=== PATIENT | male | born 1935 | race Caucasian/White ===

== ENCOUNTER 2017-07-30 13:48 | Emergency (ER) | payer OTHER, BC ==
[~2017-07-30] VITALS: Ht 165.1 cm; Wt 66.7 kg
[2017-07-30 15:16] LABS: BASOPHIL (%) 0.2 % (0-1); EOSINOPHIL (%) 0 % (0-5); HEMATOCRIT 42.3 % (38.0-50.0); HEMOGLOBIN 14.8 G/DL (12.5-16.6); IMMATURE GRANULOCYTE (%) 0.5 % (0.0-0.7); LYMPHOCYTE (%) 8.5 % (15-42); LYMPHOCYTE COUNT 1.2 K/uL (1.0-2.8); MCV 91.4 FL (86-99); MONOCYTE (%) 6.9 % (3-12); NEUTROPHIL (%) 83.9 % (45-76); NEUTROPHIL COUNT 12.2 K/uL (1.8-6.4); PLATELET COUNT 304 K/uL (156-360); RBC DIS.WIDTH-CV 12.2 % (11.8-14.6); RED BLOOD COUNT 4.63 M/uL (4.00-5.50); WHITE BLOOD COUNT 14.6 K/uL (4.1-10.2)
[2017-07-30 15:22] LABS: CHLORIDE 94 mEq/L (99-109); POTASSIUM 4.2 mEq/L (3.7-5.4); SODIUM 134 mEq/L (136-147)
[2017-07-30 15:24] LABS: GLUCOSE 162 mg/dL (70-99)
[2017-07-30 15:28] LABS: CREATININE 1.2 mg/dL (0.6-1.3); GFR ESTIMATE (CALCULATED) > 59 mL/min/ (58.99-99999)
[2017-07-30 15:29] LABS: UREA NITROGEN (BUN) 26 mg/dL (9-23)
[2017-07-30 15:30] LABS: TROP-I INTERPRETATION NEGATIVE; TROPONIN-I 0.03 ng/mL (0.0-0.30)
[2017-07-30 15:31] LABS: CREATINE KINASE 79 IU/L (1-294); TOTAL CK 79 IU/L (1-294)
[2017-07-30 15:37] LABS: CK-MB 1.6 ng/mL (0.0-4.9)
[2017-07-30 17:44] LABS: APPEARANCE CLOUDY ((CLEAR)); BILIRUBIN NEGATIVE; BLOOD SMALL; COLOR YELLOW ((YELLOW)); GLUCOSE (STRIP) NEGATIVE; KETONES 20; LEUKOCYTES LARGE; NITRITE POSITIVE; PROTEIN (STRIP) NEGATIVE; SPECIFIC GRAVITY 1.016 (1.000-1.030); UROBILINOGEN 0.2 MG/DL (0.2-1.0)
[2017-07-30 17:55] LABS: BACTERIA RARE /HPF; EPITHELIAL CELLS RARE /HPF; MUCUS TRACE /LPF; RED BLOOD CELLS 0-5 /HPF (0-5); WHITE BLOOD CELLS TNTC /HPF (0-5)
[2017-07-30 19:02] LABS: C DIFF TOXIN NEGATIVE (NEGATIVE)
[2017-07-30] MEDS ORDERED: CIPRO500 MG PO (20:24)
[2017-07-30 21:00] VITALS: BP 146/64
== END 2017-07-30 21:00 | disposition home or self-care (01) ==
LOC: EME 13:48
PROVIDERS: Emergency Medicine
DX: N39.0 Urinary tract infection, site not specified (principal); L89.90 Pressure ulcer of unspecified site, unspecified stage; Z91.81 History of falling; R00.0 Tachycardia, unspecified; Z85.828 Personal history of other malignant neoplasm of skin
CPT/HCPCS: 70450; 71045; 80048; 81003; 82550; 82553; 84484; 85025; 87493; 93005; 99281; 99285; A6214; J0696; J7030

== ENCOUNTER 2017-08-11 16:01 | Inpatient (IN) | payer OTHER, BC ==
[~2017-08-11] VITALS: Ht 175.3 cm; Wt 75.4 kg
[~2017-08-11 16:01] MED LIST: CIPRO500 MG PO
[2017-08-11 16:41] LABS: BASOPHIL (%) 0.2 % (0-1); EOSINOPHIL (%) 0 % (0-5); HEMATOCRIT 48.5 % (38.0-50.0); HEMOGLOBIN 16.1 G/DL (12.5-16.6); LYMPHOCYTE (%) 10.9 % (15-42); LYMPHOCYTE COUNT 1.9 K/uL (1.0-2.8); MCH 31.9 PG (29.0-34.0); MCHC 33.2 G/DL (30.0-36.0); MONOCYTE (%) 4.2 % (3-12); MONOCYTE COUNT 0.7 K/uL (0-0.8); NEUTROPHIL (%) 83.7 % (45-76); NEUTROPHIL COUNT 14.6 K/uL (1.8-6.4); PLATELET COUNT 471 K/uL (156-360); RBC DIS.WIDTH-CV 13.4 % (11.8-14.6); RBC DIS.WIDTH-SD 47.8 % (39-53); RED BLOOD COUNT 5.05 M/uL (4.00-5.50); WHITE BLOOD COUNT 17.5 K/uL (4.1-10.2)
[2017-08-11 16:52] LABS: CHLORIDE 86 mEq/L (99-109); SODIUM 137 mEq/L (136-147)
[2017-08-11 16:53] LABS: INTER. NORMALIZED RATIO 1.2
[2017-08-11 16:54] LABS: GLUCOSE 248 mg/dL (70-99)
[2017-08-11 16:57] LABS: CREATININE 9.7 mg/dL (0.6-1.3); GFR ESTIMATE (CALCULATED) 6 mL/min/ (58.99-99999)
[2017-08-11 17:06] LABS: TROP-I INTERPRETATION NEGATIVE; TROPONIN-I 0.04 ng/mL (0.0-0.30)
[2017-08-11 17:08] LABS: POTASSIUM 6.4 mEq/L (3.7-5.4)
[2017-08-11 17:12] LABS: UREA NITROGEN (BUN) 126 mg/dL (9-23)
[2017-08-11] MEDS ORDERED: GLUCOPHAGE1000 MG PO (17:31)
[2017-08-11] MEDS ORDERED: LO-DOSE ASPIRIN81 M1 PO (17:31)
[2017-08-11] MEDS ORDERED: ALEVE220 MG PO (17:32)
[2017-08-11] MEDS ORDERED: AMARYL2 MG PO (17:32)
[2017-08-11 17:34] LABS: ALBUMIN 3.3 g/dL (3.2-4.8)
[2017-08-11 17:37] LABS: TOTAL PROTEIN 7.3 g/dL (6.4-8.3)
[2017-08-11 17:39] LABS: TOTAL BILIRUBIN 0.7 mg/dL (0.0-1.0)
[2017-08-11 17:40] LABS: ALKALINE PHOSPHATASE 269 IU/L (3-129)
[2017-08-11 17:42] LABS: AST (GOT) 39 IU/L (2-34); DIRECT BILIRUBIN 0.6 mg/dL (0.0-0.3)
[2017-08-11 17:43] LABS: ALT (GPT) 42 IU/L (3-49)
[2017-08-11 21:35] LABS: CARBON DIOXIDE (BICARBONATE) 6.5 MEQ/L (20-31)
[2017-08-11 21:44] LABS: ALBUMIN 2.7 g/dL (3.2-4.8); CHLORIDE 93 mEq/L (99-109); POTASSIUM 5.7 mEq/L (3.7-5.4)
[2017-08-11 21:45] LABS: SODIUM 140 mEq/L (136-147)
[2017-08-11 21:47] LABS: GLUCOSE 266 mg/dL (70-99)
[2017-08-11 21:50] LABS: ALKALINE PHOSPHATASE 228 IU/L (3-129); CREATININE 9.4 mg/dL (0.6-1.3); GFR ESTIMATE (CALCULATED) 6 mL/min/ (58.99-99999)
[2017-08-11 21:52] LABS: AST (GOT) 34 IU/L (2-34)
[2017-08-11 21:53] LABS: ALT (GPT) 35 IU/L (3-49)
[2017-08-11 21:54] LABS: TOTAL BILIRUBIN 0.9 mg/dL (0.0-1.0); TOTAL PROTEIN 5.7 g/dL (6.4-8.3); UREA NITROGEN (BUN) 127 mg/dL (9-23)
[2017-08-11 22:28] LABS: CARBOXY HGB 1.5 % (0-5); PCO2 < 19 mm Hg (35-45); PO2 111 mm Hg (80-100)
[2017-08-11 22:29] LABS: COMMENTS - BLOOD GASES C+; FI02 21 %; SITE LR; TOTAL RESP RATE 17 resp/min
[2017-08-11 23:45] VITALS: BP 103/79
[2017-08-12] VITALS (18 sets, daily range): BP systolic 95–137; BP diastolic 43–865
[2017-08-12 04:54] LABS: PCO2 35 mm Hg (35-45); PO2 65 mm Hg (80-100)
[2017-08-12 04:55] LABS: BASE EXCESS 11.2 mEq/L (-3 to +3); BICARBONATE 33.6 mEq/L (22-26); CARBOXY HGB 1.4 % (0-5); COMMENTS - BLOOD GASES C+A+; DEVICE NC; METHEMOGLOBIN 1.1 % (0-1.5); O2 FLOW 2 L/MIN; SITE LR
[2017-08-12 04:57] LABS: pH 7.59 (7.35-7.45)
[2017-08-12 07:14] LABS: HEMATOCRIT 29.3 % (38.0-50.0); MCH 31.4 PG (29.0-34.0); MCHC 34.8 G/DL (30.0-36.0); RBC DIS.WIDTH-CV 13.1 % (11.8-14.6); RBC DIS.WIDTH-SD 42.9 % (39-53); WHITE BLOOD COUNT 13.7 K/uL (4.1-10.2)
[2017-08-12 07:20] LABS: HEMOGLOBIN 10.2 G/DL (12.5-16.6); MCV 90.2 FL (86-99); PLATELET COUNT 153 K/uL (156-360); RED BLOOD COUNT 3.25 M/uL (4.00-5.50)
[2017-08-12 07:33] LABS: CHLORIDE 95 MEQ/L (99-109); GLUCOSE 182 mg/dL (70-99); MAGNESIUM 1.5 mg/dl (1.3-2.7); SODIUM 142 MEQ/L (136-147)
[2017-08-12 07:34] LABS: CREATININE 2.4 MG/DL (0.6-1.3); GFR ESTIMATE (CALCULATED) 28 mL/min/ (58.99-99999); POTASSIUM 3.4 MEQ/L (3.7-5.4); UREA NITROGEN (BUN) 27 mg/dL (9-23)
[2017-08-12 08:06] LABS: PLAT.SUFFICIENCY ADEQUATE
[2017-08-12 10:52] LABS: HEPATITIS B SURFACE ANTIBODY Nonreactive; HEPATITIS B SURFACE ANTIGEN Nonreactive; HEPATITIS C ANTIBODY Nonreactive
[2017-08-12 11:02] LABS: ANTI-HEPATITIS B CORE (TOTAL) Nonreactive
[2017-08-12 11:02] LABS: HEMOGLOBIN A1c (GLYCOHEMOGLOB) 7.5 % (Below 5.7)
[2017-08-12 13:02] LABS: APPEARANCE SL.HAZY ((CLEAR)); BILIRUBIN NEGATIVE; BLOOD LARGE; COLOR YELLOW ((YELLOW)); GLUCOSE (STRIP) NEGATIVE; KETONES NEGATIVE; LEUKOCYTES LARGE; NITRITE NEGATIVE; PROTEIN (STRIP) 30; UROBILINOGEN 0.2 MG/DL (0.2-1.0)
[2017-08-12 13:39] LABS: BACTERIA RARE /HPF; EPITHELIAL CELLS 1+ /HPF; MUCUS TRACE /LPF; RED BLOOD CELLS 20-30 /HPF (0-5); UCUL ADDED? YES; WHITE BLOOD CELLS TNTC /HPF (0-5)
[2017-08-12 14:33] LABS: EOSINOPHILS,URINE NONE SEEN
[2017-08-13 07:29] LABS: BASOPHIL (%) 0.1 % (0-1); EOSINOPHIL (%) 0.1 % (0-5); HEMATOCRIT 33.9 % (38.0-50.0); HEMOGLOBIN 11.6 G/DL (12.5-16.6); IMMATURE GRANULOCYTE (%) 0.5 % (0.0-0.7); LYMPHOCYTE (%) 9.9 % (15-42); LYMPHOCYTE COUNT 1.1 K/uL (1.0-2.8); MCH 31.9 PG (29.0-34.0); MCHC 34.2 G/DL (30.0-36.0); MCV 93.1 FL (86-99); MONOCYTE (%) 5.7 % (3-12); MONOCYTE COUNT 0.6 K/uL (0-0.8); NEUTROPHIL (%) 83.7 % (45-76); NEUTROPHIL COUNT 9.2 K/uL (1.8-6.4); PLATELET COUNT 122 K/uL (156-360); RBC DIS.WIDTH-CV 13.3 % (11.8-14.6); RBC DIS.WIDTH-SD 44.9 % (39-53); RED BLOOD COUNT 3.64 M/uL (4.00-5.50); WHITE BLOOD COUNT 10.9 K/uL (4.1-10.2)
[2017-08-13 07:40] VITALS: BP 129/63
[2017-08-13 08:24] LABS: ALKALINE PHOSPHATASE 171 IU/L (3-129); ALT (GPT) 31 IU/L (3-49); AST (GOT) 82 IU/L (2-34); CHLORIDE 100 MEQ/L (99-109); CREATININE 3.6 MG/DL (0.6-1.3); GFR ESTIMATE (CALCULATED) 17 mL/min/ (58.99-99999); GLUCOSE 206 mg/dL (70-99); MAGNESIUM 1.6 mg/dl (1.3-2.7); PHOSPHORUS 3.2 mg/dL (2.5-4.9); POTASSIUM 3.4 MEQ/L (3.7-5.4); SODIUM 143 MEQ/L (136-147); TOTAL BILIRUBIN 0.8 MG/DL (0.0-1.0); TOTAL PROTEIN 4.2 G/DL (6.4-8.3); UREA NITROGEN (BUN) 44 mg/dL (9-23); URIC ACID 3.9 mg/dL (3.1-9.2)
[2017-08-13 08:25] LABS: VANCOMYCIN, TROUGH 24.9 MCG/ML (10-20)
[2017-08-13 15:30] VITALS: BP 142/81
[2017-08-14 00:36] VITALS: BP 132/65
[2017-08-14 06:57] LABS: BASOPHIL (%) 0.1 % (0-1); EOSINOPHIL (%) 0.5 % (0-5); HEMATOCRIT 30.7 % (38.0-50.0); HEMOGLOBIN 10.3 G/DL (12.5-16.6); IMMATURE GRANULOCYTE (%) 0.5 % (0.0-0.7); LYMPHOCYTE (%) 12.7 % (15-42); LYMPHOCYTE COUNT 0.9 K/uL (1.0-2.8); MCH 31.6 PG (29.0-34.0); MCHC 33.6 G/DL (30.0-36.0); MCV 94.2 FL (86-99); MONOCYTE (%) 5.1 % (3-12); MONOCYTE COUNT 0.4 K/uL (0-0.8); NEUTROPHIL (%) 81.1 % (45-76); RBC DIS.WIDTH-CV 13.2 % (11.8-14.6); RBC DIS.WIDTH-SD 45.4 % (39-53); RED BLOOD COUNT 3.26 M/uL (4.00-5.50); WHITE BLOOD COUNT 7.4 K/uL (4.1-10.2)
[2017-08-14 07:21] VITALS: BP 142/64
[2017-08-14 07:22] LABS: PLAT.SUFFICIENCY DECREASED
[2017-08-14 07:33] LABS: CHLORIDE 101 MEQ/L (99-109); CREATININE 4.1 MG/DL (0.6-1.3); GFR ESTIMATE (CALCULATED) 15 mL/min/ (58.99-99999); GLUCOSE 191 mg/dL (70-99); SODIUM 138 MEQ/L (136-147); UREA NITROGEN (BUN) 47 mg/dL (9-23)
[2017-08-14 07:36] LABS: PLATELET COUNT 72 K/uL (156-360)
[2017-08-14 10:37] VITALS: BP 153/70
[2017-08-14 16:15] VITALS: BP 162/71
[2017-08-14 23:23] VITALS: BP 137/69
[2017-08-15 06:45] LABS: BASOPHIL (%) 0.2 % (0-1); EOSINOPHIL (%) 0.6 % (0-5); HEMATOCRIT 31.3 % (38.0-50.0); HEMOGLOBIN 10.6 G/DL (12.5-16.6); IMMATURE GRANULOCYTE (%) 0.5 % (0.0-0.7); LYMPHOCYTE (%) 12.5 % (15-42); LYMPHOCYTE COUNT 0.8 K/uL (1.0-2.8); MCH 31.5 PG (29.0-34.0); MCHC 33.9 G/DL (30.0-36.0); MCV 92.9 FL (86-99); MONOCYTE (%) 5.9 % (3-12); MONOCYTE COUNT 0.4 K/uL (0-0.8); NEUTROPHIL (%) 80.3 % (45-76); NEUTROPHIL COUNT 5.1 K/uL (1.8-6.4); PLATELET COUNT 81 K/uL (156-360); RBC DIS.WIDTH-CV 13.2 % (11.8-14.6); RBC DIS.WIDTH-SD 45.1 % (39-53); RED BLOOD COUNT 3.37 M/uL (4.00-5.50); WHITE BLOOD COUNT 6.3 K/uL (4.1-10.2)
[2017-08-15 07:17] LABS: CHLORIDE 104 MEQ/L (99-109); CREATININE 4.3 MG/DL (0.6-1.3); GFR ESTIMATE (CALCULATED) 14 mL/min/ (58.99-99999); GLUCOSE 128 mg/dL (70-99); POTASSIUM 3.8 MEQ/L (3.7-5.4); SODIUM 140 MEQ/L (136-147); UREA NITROGEN (BUN) 43 mg/dL (9-23)
[2017-08-15 07:20] VITALS: BP 133/80
[2017-08-15 17:53] VITALS: BP 155/65
[2017-08-16 00:30] VITALS: BP 149/70
[2017-08-16 05:44] LABS: BASOPHIL (%) 0.1 % (0-1); EOSINOPHIL COUNT 0.1 K/uL (0-0.3); HEMATOCRIT 30.8 % (38.0-50.0); HEMOGLOBIN 10.1 G/DL (12.5-16.6); IMMATURE GRANULOCYTE (%) 0.6 % (0.0-0.7); LYMPHOCYTE (%) 14.4 % (15-42); MCH 30.5 PG (29.0-34.0); MCHC 32.8 G/DL (30.0-36.0); MCV 93.1 FL (86-99); MONOCYTE (%) 7.5 % (3-12); MONOCYTE COUNT 0.5 K/uL (0-0.8); NEUTROPHIL (%) 76.4 % (45-76); NEUTROPHIL COUNT 5.2 K/uL (1.8-6.4); PLATELET COUNT 85 K/uL (156-360); RBC DIS.WIDTH-CV 13.2 % (11.8-14.6); RBC DIS.WIDTH-SD 44.9 % (39-53); RED BLOOD COUNT 3.31 M/uL (4.00-5.50); WHITE BLOOD COUNT 6.8 K/uL (4.1-10.2)
[2017-08-16 06:39] LABS: CHLORIDE 104 MEQ/L (99-109); CREATININE 4.6 MG/DL (0.6-1.3); GFR ESTIMATE (CALCULATED) 13 mL/min/ (58.99-99999); GLUCOSE 125 mg/dL (70-99); SODIUM 139 MEQ/L (136-147); UREA NITROGEN (BUN) 45 mg/dL (9-23)
[2017-08-16 07:40] VITALS: BP 136/64
[2017-08-16 14:23] LABS: Heparin Induced Plt Ab Negative (Negative)
[2017-08-16 15:00] VITALS: BP 136/63
[2017-08-17 00:09] VITALS: BP 154/73
[2017-08-17 07:19] VITALS: BP 143/63
[2017-08-17 10:46] LABS: CHLORIDE 103 MEQ/L (99-109); CREATININE 4.5 MG/DL (0.6-1.3); GFR ESTIMATE (CALCULATED) 13 mL/min/ (58.99-99999); GLUCOSE 154 mg/dL (70-99); POTASSIUM 3.8 MEQ/L (3.7-5.4); SODIUM 142 MEQ/L (136-147); UREA NITROGEN (BUN) 49 mg/dL (9-23)
[2017-08-17 16:10] VITALS: BP 143/69
[2017-08-17 22:51] LABS: HEMATOCRIT 29.6 % (38.0-50.0); MCV 93.4 FL (86-99)
[2017-08-18 00:37] VITALS: BP 138/92
[2017-08-18 06:31] LABS: STOOL OCCULT BLD 1ST SPECIMEN POSITIVE
[2017-08-18 06:46] LABS: HEMATOCRIT 30.5 % (38.0-50.0); HEMOGLOBIN 9.9 G/DL (12.5-16.6); MCH 30.6 PG (29.0-34.0); MCHC 32.5 G/DL (30.0-36.0); MCV 94.1 FL (86-99); PLATELET COUNT 78 K/uL (156-360); RBC DIS.WIDTH-CV 13.5 % (11.8-14.6); RBC DIS.WIDTH-SD 46.2 % (39-53); RED BLOOD COUNT 3.24 M/uL (4.00-5.50); WHITE BLOOD COUNT 5.2 K/uL (4.1-10.2)
[2017-08-18 07:09] LABS: CHLORIDE 106 MEQ/L (99-109); CREATININE 4.2 MG/DL (0.6-1.3); GFR ESTIMATE (CALCULATED) 15 mL/min/ (58.99-99999); GLUCOSE 131 mg/dL (70-99); POTASSIUM 3.6 MEQ/L (3.7-5.4); SODIUM 144 MEQ/L (136-147); UREA NITROGEN (BUN) 45 mg/dL (9-23)
[2017-08-18 07:22] VITALS: BP 149/71
[2017-08-18 08:18] LABS: UFH SRA Result Negative (Negative)
[2017-08-18 15:33] VITALS: BP 163/70
[2017-08-18 23:26] VITALS: BP 137/63
[2017-08-19 06:38] LABS: CHLORIDE 106 MEQ/L (99-109); CREATININE 3.9 MG/DL (0.6-1.3); GFR ESTIMATE (CALCULATED) 16 mL/min/ (58.99-99999); GLUCOSE 135 mg/dL (70-99); POTASSIUM 3.7 MEQ/L (3.7-5.4); SODIUM 144 MEQ/L (136-147); UREA NITROGEN (BUN) 38 mg/dL (9-23)
[2017-08-19 07:00] VITALS: BP 129/67
[2017-08-19] MEDS ORDERED: CEFEPIME HCL1 GM IV (14:37)
[2017-08-19] MEDS ORDERED: NOVOLOG 10100 UNITS/ SC (14:54)
[2017-08-19 15:25] VITALS: BP 140/66
== END 2017-08-19 18:09 | DRG 871 ==
LOC: EME 16:01 → 4WEST 22:07 → EDOF 22:07 → 5EAST 22:07 → ENRESERV 22:11 → 4WEST 23:24 → ENRESERV 08-12 12:10 → 5EAST 08-12 15:11
PROVIDERS: Emergency Medicine; Hospitalist; Internal Medicine; Internal Medicine Nephrology; Surgery
PROC: 5A1D70Z Performance of Urinary Filtration, Intermittent, Less than 6 Hours Per Day (ICD-10-PCS; principal; 2017-08-12)
PROC: 02HV33Z Insertion of Infusion Device into Superior Vena Cava, Percutaneous Approach (ICD-10-PCS; 2017-08-12)
PROC: 0T9B70Z Drainage of Bladder with Drainage Device, Via Natural or Artificial Opening (ICD-10-PCS; 2017-08-14)
PROC: 0S923ZX Drainage of Lumbar Vertebral Disc, Percutaneous Approach, Diagnostic (ICD-10-PCS; 2017-08-14)
PROC: 02PY33Z Removal of Infusion Device from Great Vessel, Percutaneous Approach (ICD-10-PCS; 2017-08-19)
DX: A41.9 Sepsis, unspecified organism (principal); N17.0 Acute kidney failure with tubular necrosis; M46.26 Osteomyelitis of vertebra, lumbar region; F05 Delirium due to known physiological condition; E87.2 Acidosis; K92.0 Hematemesis; R04.2 Hemoptysis; M46.46 Discitis, unspecified, lumbar region; N40.0 Benign prostatic hyperplasia without lower urinary tract symptoms; D69.6 Thrombocytopenia, unspecified; I95.9 Hypotension, unspecified; E11.22 Type 2 diabetes mellitus with diabetic chronic kidney disease; M48.061 Spinal stenosis, lumbar region without neurogenic claudication; M48.07 Spinal stenosis, lumbosacral region; N18.3 Chronic kidney disease, stage 3 (moderate); E86.0 Dehydration; E83.51 Hypocalcemia; E87.5 Hyperkalemia; E87.6 Hypokalemia; E87.70 Fluid overload, unspecified; G89.29 Other chronic pain; K80.20 Calculus of gallbladder without cholecystitis without obstruction; M19.90 Unspecified osteoarthritis, unspecified site; N30.20 Other chronic cystitis without hematuria; N41.9 Inflammatory disease of prostate, unspecified; T39.395A Adverse effect of other nonsteroidal anti-inflammatory drugs [NSAID], initial encounter; R62.7 Adult failure to thrive; R31.9 Hematuria, unspecified; R35.1 Nocturia; R97.20 Elevated prostate specific antigen [PSA]; Z79.84 Long term (current) use of oral hypoglycemic drugs; Z85.828 Personal history of other malignant neoplasm of skin; Z87.440 Personal history of urinary (tract) infections; Z87.442 Personal history of urinary calculi; Z74.01 Bed confinement status; Z79.82 Long term (current) use of aspirin; Z68.21 Body mass index [BMI] 21.0-21.9, adult; J84.10 Pulmonary fibrosis, unspecified
CPT/HCPCS: 10030; 36600; 70450; 71045; 71046; 71250; 72148; 74176; 76705; 76937; 80048; 80048 91; 80053; 80076; 80202; 81003; 82272; 82330; 82803; 82948; 83036; 83605; 83735; 84100; 84484; 84550; 85014; 85018; 85025; 85027; 85610; 85730; 86022 90; 86704; 86706; 86803; 86850; 86900; 86901; 87040; 87070; 87075; 87086; 87205; 87340; 87641; 89190; 93005; 94640; 94799; 97530 GO; 99281; 99285; C1788; C9113; J0456; J0692; J1644; J1815; J1940; J2270; J3010; J3370; J3480; J7030; J7042; J7050; J7070; S0028